=== PATIENT | female | born 1930 | race Caucasian/White ===

== ENCOUNTER 2018-10-30 19:27 | Inpatient (IN) | payer MEDICARE, BC ==
[~2018-10-30] VITALS: Ht 160 cm; Wt 50.0 kg
[2018-10-30] MEDS ORDERED: ASPI81TA21 PO (19:38)
[2018-10-30] MEDS ORDERED: LISI10TA4 PO (19:38)
[2018-10-30] MEDS ORDERED: CLOP75TA2 PO (19:38)
[2018-10-30] MEDS ORDERED: AMLO5TAB6 PO (19:38)
[2018-10-30] MEDS ORDERED: METO1TAB87 PO (19:38)
[2018-10-30] MEDS ORDERED: ACETAMINOPHEN 325 MG TAB PO ONE (20:30)
[2018-10-30] MEDS ORDERED: NS 500 ML IV ONE (20:30)
[2018-10-30 20:32] LABS: BASO # 0.1 10^3/uL (0.0-0.2); BASO % 0.4 % (0.0-1.0); EOS % 0.2 % (0.0-3.0); HEMATOCRIT 35.8 % (36.0-47.0); HEMOGLOBIN 11.8 g/dl (12.0-15.5); LYMPH # 0.7 10^3/uL (1.5-4.5); LYMPH % 5.3 % (24.0-44.0); MEAN CORPUSCULAR HEMOGLOBIN 29.3 pg (27.0-33.0); MEAN CORPUSCULAR VOLUME 88.8 fl (80.0-96.0); MONO # 0.8 10^3/uL (0.0-0.8); MONO % 6.2 % (0.0-5.0); NEUTROPHILS # 11.6 10^3/uL (1.8-7.7); NEUTROPHILS % 87.4 % (36.0-66.0); PLATELET COUNT, AUTOMATED 238 10^3/uL (150-450); RED BLOOD COUNT 4.03 10^6/uL (4.00-5.40); WHITE BLOOD COUNT 13.3 10^3/uL (4.0-10.0)
[2018-10-30 20:51] LABS: ALBUMIN 3.5 GM/DL (3.2-5.2); BILIRUBIN,DIRECT 0.2 MG/DL (0.0-0.2); BILIRUBIN,TOTAL 0.9 MG/DL (0.2-1.0); CALCIUM LEVEL 8.9 MG/DL (8.8-10.2); CREATININE FOR GFR 1.14 MG/DL (0.55-1.30); FREE THYROXINE INDEX 4.3 % (1.3-4.8); GLOMERULAR FILTRATION RATE 48.1 (>32); POTASSIUM SERUM 4.2 MEQ/L (3.5-5.1); THYROID STIMULATING HORMONE 1.06 uIU/ML (0.358-3.740); THYROXINE (T4) 11.5 UG/DL (4.5-12.0); TOTAL PROTEIN 6.9 GM/DL (6.4-8.2)
[2018-10-30 21:07] LABS: APPEARANCE, URINE CLEAR (CLEAR); BACTERIA, URINE AUTO NEGATIVE (NEGATIVE); BILIRUBIN, URINE AUTO NEGATIVE (NEGATIVE); BLOOD, URINE BLOOD 1+ (NEGATIVE); COLOR, URINE YELLOW (YELLOW); GLUCOSE, URINE (UA) AUTO NEGATIVE (NEGATIVE); KETONE, URINE AUTO TRACE mg/dL (NEGATIVE); LEUKOCYTE ESTERASE, URINE AUTO NEGATIVE (NEGATIVE); MUCUS, URINE SMALL (NEGATIVE); NITRITE, URINE AUTO NEGATIVE (NEGATIVE); PROTEIN, URINE AUTO 2+ mg/dL (NEGATIVE); RBC, URINE AUTO 5 /HPF (0-3); SPECIFIC GRAVITY URINE AUTO 1.015 (1.002-1.035); SQUAMOUS EPITHELIAL CELL UR AU 0 /HPF (0-6); TRANSITIONAL EPITHELIAL AUTO <1 /HPF; UROBILINOGEN, URINE AUTO 0.2 mg/dL (0.0-2.0); WBC, URINE AUTO 1 /HPF (0-3)
[2018-10-30 21:23] LABS: INFLUENZA A AMPLIFICATION NEGATIVE (NEGATIVE); INFLUENZA B AMPLIFICATION NEGATIVE (NEGATIVE)
[2018-10-30] MEDS ORDERED: ISOVUE-370 76% 100ML VIAL (Q9967) As Ordered ONE (21:32)
--- NOTE | 2018-10-30 22:06 | REPVR ---
EXAM: CT Abdomen and Pelvis With Contrast EXAM DATE/TIME: 10/30/2018 9:41 PM CLINICAL HISTORY: 87 years old, female; Pain; Abdominal pain; Generalized; Additional info: Fever/pain TECHNIQUE: Axial computed tomography images of the abdomen and pelvis with intravenous contrast. All CT scans at this facility use at least one of these dose optimization techniques: automated exposure control; mA and/or kV adjustment per patient size (includes targeted exams where dose is matched to clinical indication); or iterative reconstruction. Coronal and sagittal reformatted images were created and reviewed. CONTRAST: 100 ml of ISOVUE 370 administered intravenously. COMPARISON: No relevant prior studies available. FINDINGS: Lower thorax: No acute findings. ABDOMEN: Liver: Normal. No mass. Gallbladder and bile ducts: Dilated intrahepatic biliary radicals. Common bile duct dilated to 1.6 cm. No obstructing mass or choledocholithiasis. Hydropic gallbladder contains calculi. Pancreas: Normal. No ductal dilation. Spleen: Normal. No splenomegaly. Adrenals: Normal. No mass. Kidneys and ureters: Normal. No hydronephrosis. Stomach and bowel: Thickwalled gastric fundus likely related to underdistention. Clinical correlation to exclude an infiltrative process suggested. Moderate diverticulosis coli. Suggestion of mild pericolonic inflammatory changes at the junction of the distal left proximal sigmoid colon indicating mild uncomplicated diverticulitis. Appendix: No evidence of appendicitis. PELVIS: Bladder: Pritchard catheter within a collapsed urinary bladder. Otherwise unremarkable as visualized. Reproductive: Calcified uterine fibroids. ABDOMEN and PELVIS: Intraperitoneal space: Normal. No free air. No significant fluid collection. Bones/joints: Status post ORIF both hips. Degenerative spondylosis. Moderate to severe spinal stenosis at L2-3, L3-4, and L4-5. Slight anterolisthesis of L3 on L4. Compression deformities of T12, L1 and L2 likely chronic. Clinical correlation to exclude acute fracture suggested. Soft tissues: Unremarkable. Vasculature: The aorta demonstrates moderate atherosclerotic calcification. Tortuous aorta. Lymph nodes: Normal. No enlarged lymph nodes. Other findings: Osteoporosis. IMPRESSION: 1. Dilated intrahepatic biliary radicals. Common bile duct dilated to 1.6 cm. No obstructing mass or choledocholithiasis. Hydropic gallbladder contains calculi. 2. Moderate diverticulosis coli. Suggestion of mild pericolonic inflammatory changes at the junction of the distal left proximal sigmoid colon indicating mild uncomplicated diverticulitis. Electronically signed by: Chacorta Irving On 10/30/2018 22:06:26 PM
--- NOTE | 2018-10-30 22:07 | REPVR ---
EXAM: CT Head Without Contrast EXAM DATE/TIME: 10/30/2018 9:41 PM CLINICAL HISTORY: 87 years old, female; Signs and symptoms; Altered mental status/memory loss; Additional info: AMS TECHNIQUE: Axial computed tomography images of the head/brain without contrast. All CT scans at this facility use at least one of these dose optimization techniques: automated exposure control; mA and/or kV adjustment per patient size (includes targeted exams where dose is matched to clinical indication); or iterative reconstruction. COMPARISON: No relevant prior studies available. FINDINGS: Brain: There is parenchymal volume loss. White matter changes are demonstrated in the subcortical, centrum semiovale and periventricular white matter consistent with small vessel white matter angiopathic gliosis. Ventricles: Normal. No ventriculomegaly. Bones/joints: Unremarkable. No acute fracture. Sinuses: Visualized sinuses are unremarkable. No acute sinusitis. Mastoid air cells: Visualized mastoid air cells are unremarkable. No mastoid effusion. Soft tissues: Unremarkable. Vasculature: Atherosclerotic changes in the vertebral and intracranial carotid arteries. IMPRESSION: There is parenchymal volume loss. White matter changes are demonstrated in the subcortical, centrum semiovale and periventricular white matter consistent with small vessel white matter angiopathic gliosis. No acute findings. Electronically signed by: Chacorta Irving On 10/30/2018 22:07:20 PM
[2018-10-30] MEDS ORDERED: ASPI81TAEC PO (22:34)
[2018-10-30] MEDS ORDERED: metroNIDAZOLE 750 MG in APPROPRIATE DILUENT 1 EA IV ONE (22:45)
[2018-10-30] MEDS ORDERED: CIPROFLOXACIN 400 MG in APPROPRIATE DILUENT 1 EA IV ONE (22:45)
[2018-10-31] MEDS ORDERED: NS 750 ML IV SCH (02:00)
[2018-10-31] MEDS ORDERED: ONDANSETRON 4MG/2ML VIAL (J2405) IV PRN (02:00)
[2018-10-31] MEDS ORDERED: SODIUM CHLORIDE IV SCH (02:15)
[2018-10-31] MEDS ORDERED: D5W IV SCH (02:15)
[2018-10-31] MEDS: HEPARIN SOD (PORCINE) 5000 UNITS/ML VIAL SC SCH ×3 (05:35→21:42)
[2018-10-31] MEDS: cefTRIAXone SOD 1 GM in D5W MINI-BAG PLUS 50 ML IV SCH (05:41)
[2018-10-31] MEDS: ACETAMINOPHEN TAB 650MG DOSE (2X325MG) PO PRN (06:34)
--- NOTE | 2018-10-31 07:11 | HPE ---
DATE OF ADMISSION: 10/31/2018 CHIEF COMPLAINT: Abdominal pain which was believed to be in the left lower quadrant initially. HISTORY OF PRESENT ILLNESS: The patient is an 87-year-old female. She is presently demented. She also had coronary artery disease (CAD) status post PCI. She had aortic valve replacement in 03/2018. She has hypertension. She presents to the emergency room brought by EMS complaining of abdominal pain. Son was initially present in the emergency room. The patient was having some lower quadrant abdominal pain. Patient is presently demented. She is a very poor historian. Most of the history is obtained from the charts of her primary care physician along with the aide of the emergency department provider and EMS. She currently is completely asymptomatic. A CT of the abdomen shows uncomplicated diverticulitis. She also has severely dilated common bile duct (CBD) with hydrops gallbladder. However, she remains asymptomatic and has no complaints. Attempts were made to discharge the patient from the emergency room and to treat with oral medications for acute uncomplicated diverticulitis, however, her family was not able to be contacted. In the emergency room, the patient denies any symptoms. She denies any nausea, vomiting, chest pain, abdominal pain, constipation, diarrhea, urinary symptoms. She denies having a history of any abdominal pain at all. So at best, I believe the patient's history is unreliable. PAST MEDICAL HISTORY: See history of present illness. PAST SURGICAL HISTORY: She had hip surgery, as well as aortic valve replacement on 03/2018. HOME MEDICATIONS: - aspirin - Plavix - amlodipine - lisinopril ALLERGIES: No known drug allergies. SOCIAL HISTORY: She is a former smoker. Denies alcohol or elicit drug use. REVIEW OF SYSTEMS: Completed 12 point review of systems all of which were negative. Again, the patient is unreliable. FAMILY HISTORY: Noncontributory. VITAL SIGNS ON ADMISSION: She had a T-max of 101.1, heart rate of 80, blood pressure of 104/73, sating at 99% on room air, respiratory rate of 16. PHYSICAL EXAMINATION: General: She is well nourished, in no apparent distress. Head is normocephalic, atraumatic. Eyes: Extraocular movements are intact. Pupils equal, round, and reactive to light. Neck is supple, no jugular venous pulse. Lungs: Clear to auscultation. No crackles, wheezes, rales or rhonchi. Cardiovascular: Regular rate and rhythm. Grade 2/6 murmur heard at the right second intercostal space. Abdomen is soft, nontender, nondistended, positive bowel sounds. No rebound. No guarding. Extremities: No pitting edema or calf tenderness. Skin is intact. No rashes, lesions or breakdown. Neurological exam: Alert and oriented times three. No focal deficits appreciated on exam. LABS AND IMAGING COMPLETED IN THE ER: White count 13, hemoglobin and hematocrit of 11/35, platelet count of 238. Chemistry shows a BUN and creatinine of 30/1.14, lactate within normal limits. UA is unremarkable. Rapid flu is negative. IMAGING: Chest x-ray says no acute disease. CT of the abdomen and pelvis shows dilated intrahepatic biliary radicles. Common bile duct of 1.6 cm. No obstructive mass or cholelithiasis. Hydrops in gallbladder contains calculi. Moderate diverticulosis. Mild pericolonic inflammatory changes at the junction of the distal left proximal sigmoid colon indicating mild uncomplicated diverticulitis. CT of the head shows no acute finding. ASSESSMENT AND PLAN: Sepsis secondary to uncomplicated diverticulitis. Will place the patient on ceftriaxone and Flagyl for now. Because of the poor side effect in her profile for quinolones in elderly patients with atherosclerotic disease, Zofran as needed. Gentle IV fluids while n.p.o. awaiting for MRCP. However since the patient can tolerate diet, she can eat with her uncomplicated diverticulitis. Diet to start after the MRCP completed and will trend vital signs. Patient can likely be discharged on a course of oral Cipro and Flagyl to complete the course. For hydrops gallbladder with dilated common bile duct, there does not appear to be any stone obstruction on the CT scan. Unclear if there is a component of her abdominal pain that is caused by this hydrops gallbladder. Will get MRCP to assess for any obstruction with a severely dilated common bile duct at 1.6 cm. Will consult surgery in the morning. Patient likely will benefit from an elective cholecystectomy if she continues to have abdominal pain and has hydrops gallbladder which can possibly be done as outpatient versus inpatient setting but would also get the MRCP to assess for any choledocholithiasis or other obstruction in the biliary tree. Hypertension, will continue home medication lisinopril as well as Norvasc. History of coronary artery disease (CAD) status post stent, continue dual antiplatelet therapy, aspirin and Plavix. History of aortic valve replacement, stable. Supportive deep venous thrombosis (DVT) prophylaxis, heparin subcutaneous. Gastrointestinal (GI) prophylaxis, not indicated. The patient's diet n.p.o. for now just to have the MRCP. Once the MRCP is complete, she can start on a cardiac diet.
--- NOTE | 2018-10-31 07:35 | REP ---
Clinical: Fever . Comparison: None . Findings: Mediastinum demonstrates atherosclerotic changes to the thoracic aorta along with aortic valve stent graft. Lung whyte demonstrate diffuse chronic changes. No focal consolidation, obvious effusion or pneumothorax. Skeletal structures demonstrate age-related degenerative change. Impression: Chronic-appearing changes. No acute cardiopulmonary process appreciated. Electronically Signed by Phuc Armstrong MD 10/31/2018 07:27 A
[2018-10-31] MEDS: metroNIDAZOLE 500 MG in APPROPRIATE DILUENT 1 EA IV SCH ×2 (08:10→15:46)
[2018-10-31] MEDS: LISINOPRIL 10 MG TAB PO SCH (08:10)
[2018-10-31] MEDS: CLOPIDOGREL 75 MG TAB PO SCH (08:10)
[2018-10-31] MEDS: ASPIRIN 81 MG ENTERIC TAB PO SCH (08:10)
[2018-10-31] MEDS: METOPROLOL TART 25 MG TABLET PO SCH ×2 (08:11→21:41)
[2018-10-31] MEDS: amLODIPine 5 MG TAB PO SCH (08:11)
[2018-10-31 08:33] LABS: BASO % 0.4 % (0.0-1.0); EOS # 0.1 10^3/uL (0.0-0.50); EOS % 0.5 % (0.0-3.0); HEMATOCRIT 30.7 % (36.0-47.0); LYMPH # 0.6 10^3/uL (1.5-4.5); LYMPH % 5.8 % (24.0-44.0); MEAN CORPUSCULAR HEMOGLOBIN 29.3 pg (27.0-33.0); MEAN CORPUSCULAR HGB CONC 32.6 g/dl (32.0-36.5); MONO # 1.1 10^3/uL (0.0-0.8); MONO % 11.2 % (0.0-5.0); NEUTROPHILS # 8.1 10^3/uL (1.8-7.7); NEUTROPHILS % 81.2 % (36.0-66.0); PLATELET COUNT, AUTOMATED 176 10^3/uL (150-450); RED BLOOD COUNT 3.41 10^6/uL (4.00-5.40)
[2018-10-31 08:55] LABS: ALBUMIN 2.4 GM/DL (3.2-5.2); BILIRUBIN,TOTAL 0.7 MG/DL (0.2-1.0); CALCIUM LEVEL 8.3 MG/DL (8.8-10.2); CREATININE FOR GFR 1.06 MG/DL (0.55-1.30); GLOMERULAR FILTRATION RATE 52.3 (>32); POTASSIUM SERUM 3.5 MEQ/L (3.5-5.1); TOTAL PROTEIN 5.7 GM/DL (6.4-8.2)
--- NOTE | 2018-10-31 13:08 | REP ---
MRCP: MRCP exam is accomplished utilizing multiple heavily T2-weighted sequences in the axial and coronal planes. 3D MIP reconstruction images are performed. Gallbladder is moderately distended with no definite wall thickening. There is a 2.5 cm gallstone in the dependent portion of the gallbladder. There is moderate intrahepatic biliary dilatation diffusely. There is dilatation of the common hepatic and common bile ducts with a maximum diameter of 1.6 cm. There is no evidence of choledocholithiasis. I cannot exclude a stricture at the ampulla of Vater. Pancreatic duct is not dilated. A few scattered small cysts are seen in the pancreas which are of doubtful significance. There appears to be a subcentimeter cyst in the tail of the pancreas superiorly and another in the body of the pancreas, with two similar sized cysts in the head of the pancreas, the largest two are in the head of the pancreas and measure 7 mm in diameter and 10 x 5 mm. No other significant abnormalities are seen in the abdomen. No significant free fluid is seen. IMPRESSION: Gallstone in the gallbladder measures 2.5 cm in diameter without evidence of significant gallbladder wall thickening. Gallbladder is moderately dilated. There is moderate intrahepatic and extrahepatic biliary dilatation diffusely, the common bile duct measuring 1.6 cm in maximum diameter. There is no evidence of choledocholithiasis. I cannot exclude a stricture at the ampulla of Vater. There is no pancreatic duct dilatation. There are a few scattered small cysts in the pancreas which are of doubtful significance. Electronically Signed by Avila Gallagher MD 10/31/2018 03:50 P
--- NOTE | 2018-10-31 16:25 | CR ---
DATE OF CONSULTATION: 10/31/2018 SURGICAL CONSULTATION ATTENDING PHYSICIAN: DR. NGUYEN REASON FOR CONSULTATION: Diverticular disease/gallbladder. CHIEF COMPLAINT: Abdominal pain. HISTORY OF PRESENT ILLNESS: The patient is an 87-year-old female with a history of dementia who presented to the emergency room with a complaint of lower quadrant abdominal pain. The patient is a poor historian. However, at presentation to the emergency room (ER), the patient was found to be asymptomatic and was denying any pain. In the emergency room, she did receive a CT abdomen which demonstrated dilated common bile duct at 1.6 cm. There was no obstructing mass or choledocholithiasis. Hydropic gallbladder containing calculi was noted. Additionally, she had some mild diverticulosis with mild pericolonic inflammatory changes consistent with a mild uncomplicated diverticulitis. At the emergency room, the patient remained afebrile. She was started on antibiotic treatment and IV fluids. She has since denied any pain. On examination today, the patient was completely asymptomatic. She did state that there was pain there before but not today. When asked to point where her pain was, she points at her lower left quadrant. She denies any pain in her right upper quadrant. She denies any nausea, vomiting, diarrhea, or constipation. The patient had an magnetic resonance cholangiopancreatography (MRCP) today which demonstrated gallstone in the gallbladder measuring 2.5 cm in diameter without evidence of significant gallbladder wall thickening. Her gallbladder was moderately dilated. There was some moderate intrahepatic and extrahepatic biliary dilatation diffusely. The common bile duct measured 1.6 cm in diameter and there was no evidence of choledocholithiasis. PAST MEDICAL HISTORY: 1. Coronary artery disease, status post percutaneous coronary intervention (PCI). 2. Hypertension. 3. Dementia. PAST SURGICAL HISTORY: Aortic valve replacement in March 2018. HOME MEDICATIONS: Aspirin, Plavix, amlodipine, lisinopril. ALLERGIES: No known drug allergies. SOCIAL HISTORY: The patient is a former smoker. Denies any alcohol or illicit drug use. REVIEW OF SYSTEMS: 12-point review of systems was negative. VITAL SIGNS: Temperature 97.2, pulse 71, respiratory rate 16, blood pressure 136/60, pulse oximetry 95% on room air. PHYSICAL EXAMINATION: GENERAL: The patient is awake and alert. She appears in no acute distress. She is well-nourished. She is lying comfortably in bed. HEENT: Head is normocephalic, atraumatic. Eyes are anicteric. Pupils are equal, round, and reactive to light. Trachea is midline. No jugular venous distention (JVD). No carotid bruits. RESPIRATORY: Lungs are clear to auscultation bilaterally. No wheezes, rhonchi or rales. CARDIOVASCULAR: The patient has a regular rate and rhythm, a grade 2/6 systolic murmur appreciated. ABDOMEN: The patient's abdomen is soft, nontender to palpation, nondistended. No rebound tenderness or guarding. Positive bowel sounds in all four quadrants. EXTREMITIES: No edema, 2+ posterior tibial pulses bilaterally, 2+ radial pulses bilaterally. PSYCHIATRY: Mood and affect appear appropriate. LABORATORY DATA: Hematology: White blood cell 10.0, hemoglobin 10.0, hematocrit 30.7, platelet count 176. Chemistry: Sodium 138, potassium 3.5, chloride 104, CO2 25, BUN 24, creatinine 1.06, fasting glucose 135, calcium 8.3, AST 20, ALT 14, alkaline phosphatase 69, total bilirubin 0.9, direct bilirubin 0.2. IMAGING: CT abdomen and pelvis demonstrated dilated common bile duct at 1.6 cm with no obstructing mass or cholelithiasis, hydropic gallbladder containing calculi, moderate diverticulosis with calculi suggesting mild pericolonic inflammatory changes at the junction of the distal left proximal sigmoid colon indicating mild uncomplicated diverticulitis. ASSESSMENT AND PLAN: 1. Diverticular disease: The patient is currently not complaining of any pain. CT imaging did demonstrate uncomplicated diverticulitis. The patient is currently on IV fluids and IV antibiotics. The patient can followup with Dr. Nguyen's office in 1-2 weeks. At discharge, she should be placed on oral antibiotics. 2. Dilated bile duct/hydropic gallbladder: The patient has a dilated bile duct without any evidence of obstruction. Her white blood cell count has been within normal limits. She has remained afebrile. There is no pain on palpation of the abdomen. Her liver function tests are not elevated at this time. The patient can likely followup as an outpatient with Dr. Nguyen for further management of her possible gallbladder disease. No indication for surgical intervention at this time. My faculty preceptor for this patient encounter was physically present during the encounter and was fully available. All aspects of the patient interview, examination, medical decision making process, and medical care plan development were reviewed and approved by the faculty preceptor. The faculty preceptor is aware and concurs with the plan as stated in the body of this note and will attest to such by his/her co-signature. NOE
[2018-11-01] MEDS: ACETAMINOPHEN TAB 650MG DOSE (2X325MG) PO PRN ×2 (02:31→14:54)
[2018-11-01] MEDS: HEPARIN SOD (PORCINE) 5000 UNITS/ML VIAL SC SCH ×3 (05:52→21:01)
[2018-11-01] MEDS: cefTRIAXone SOD 1 GM in D5W MINI-BAG PLUS 50 ML IV SCH (05:52)
[2018-11-01 06:00] VITALS: BP 132/66
[2018-11-01 06:03] LABS: HEMATOCRIT 30.1 % (36.0-47.0); HEMOGLOBIN 10.1 g/dl (12.0-15.5); MEAN CORPUSCULAR HEMOGLOBIN 29.2 pg (27.0-33.0); MEAN CORPUSCULAR HGB CONC 33.6 g/dl (32.0-36.5); PLATELET COUNT, AUTOMATED 223 10^3/uL (150-450); RED BLOOD COUNT 3.46 10^6/uL (4.00-5.40); WHITE BLOOD COUNT 10.2 10^3/uL (4.0-10.0)
[2018-11-01 06:21] LABS: CALCIUM LEVEL 8.7 MG/DL (8.8-10.2); CREATININE FOR GFR 1.12 MG/DL (0.55-1.30); GLOMERULAR FILTRATION RATE 49.1 (>32); POTASSIUM SERUM 3.7 MEQ/L (3.5-5.1)
[2018-11-01] MEDS: metroNIDAZOLE 500 MG in APPROPRIATE DILUENT 1 EA IV SCH ×5 (08:10→23:35)
[2018-11-01] MEDS: CLOPIDOGREL 75 MG TAB PO SCH (08:21)
[2018-11-01] MEDS: ASPIRIN 81 MG ENTERIC TAB PO SCH (08:21)
[2018-11-01] MEDS: amLODIPine 5 MG TAB PO SCH (08:22)
[2018-11-01] MEDS: METOPROLOL TART 25 MG TABLET PO SCH ×2 (08:23→21:01)
[2018-11-01] MEDS: LISINOPRIL 10 MG TAB PO SCH (08:23)
[2018-11-01] MEDS ORDERED: PILL CRUSHER/CUTTER 1 EACH XX PRN (08:45)
--- NOTE | 2018-11-01 10:47 | IPNPDOC ---
Date Seen The patient was seen on 11/01/18. Progress Note SUBJECTIVE: Patient was seen and examined this morning. She was complaining of lower abdominal pain this morning. She denied pain in her right upper quadrant. On reevaluation, she denied any pain at all. The patient is eating without discomfort. She is having bowel movements. She has remained afebrile. Her WBC is stable. She does have a degree of dementia and is an unreliable historian. Her family are not present at bedside. OBJECTIVE PHYSICAL EXAMINATION: VITAL SIGNS: Please see below. GENERAL: Patient is awake and alert. She does not appear in acute distress. She is sitting up in bed and eating breakfast HEENT: Atraumatic normocephalic. Eyes are non-icteric. Trachea is midline. CARDIOVASCULAR: Regular rate and rhythm. 2/6 systolic murmur noted. No JVD, No carotid bruits RESPIRATORY: Clear to auscultation bilaterally with good respiratory effort. No wheezes, rhonchi or rales ABDOMINAL: Soft nondistended. Nontender to palpation throughout. Positive bowel sounds present in all four quadrants EXTREMITIES: No edema present. Full and equal pulses throughout PSYCHOLOGICAL: Mood and affect appear appropriate LABORATORY DATA, IMAGING STUDIES, MICROBIOLOGY: Please see below. ASSESSMENT AND PLAN: 1. Diverticular disease: The patient complained of pain in her left lower quad rant this morning. On reevaluation she denied any pain. She has been having bowel movements and tolerating her diet. Her CT did demonstrate uncomplicated diverticulitis. Her pain earlier this morning may be from her diverticulitis or from gas pain. At this point no indication for surgical intervention. Patient should be continued on IV fluids and antibiotics for treatment of her diverticular disease. She may benefit with outpatient follow-up at Dr. Nielsen officer in 2-3 weeks. At time of discharge patient should be sent with oral antibiotics 2. Dilated bile duct/hydropic gallbladder: Patient denies any right upper quadrant pain. She does not appear to be in any pain with deep palpation of her RUQ. She has had imaging which demonstrated a dilated bile duct without evidence of obstruction. She remains afebrile without an elevated WBC. Her LFTs are within normal limits. At this point, there is no need for surgical intervention. She may follow up with Dr. Nguyen's office in 2-3 weeks for further management. DISPOSITION: Surgery signing off. Patient can follow-up as an outpatient in 2-3 weeks for further management VS, I&O, 24H, Fishbone Vital Signs/I&O Vital Signs Date Time Temp Pulse Resp B/P (MAP) Pulse Ox O2 Delivery O2 Flow Rate FiO2 11/01/18 08:22 89 171/86 11/01/18 06:00 98.2 20 94 10/31/18 14:00 Room Air I&O- Last 24 Hours up to 6 AM 11/01/18 05:59 Intake Total 600 ml Output Total 800 ml Balance -200 ml Laboratory Data 24H LABS Laboratory Tests 2 11/01/18 05:45: Nucleated Red Blood Cells % (auto) 0.0, Anion Gap 9, Glomerular Filtration Rate 49.1, Blood Urea Nitrogen 26H, Creatinine 1.12, Sodium Level 141, Potassium Level 3.7, Chloride Level 106, Carbon Dioxide Level 26, Calcium Level 8.7L CBC/BMP Laboratory Tests 11/01/18 05:45 Red Blood Count 3.46 L, Mean Corpuscular Volume 87.0, Mean Corpuscular Hemoglobin 29.2, Mean Corpuscular Hemoglobin Concent 33.6, Red Cell Distribution Width 13.4, Calcium Level 8.7 L Microbiology Microbiology 10/30/18 Blood Culture - Preliminary, Resulted No growth after 24 hours . All specim... 10/30/18 Urine Culture - Final, Complete GME ATTESTATION GME ATTESTATION My faculty preceptor for this patient encounter was physically present during the encounter and was fully available. All aspects of the patient interview, examination, medical decision making process, and medical care plan development were reviewed and approved by the faculty preceptor. The faculty preceptor is aware and concurs with the plan as stated in the body of this note and will attest to such by his/her cosignature. KEVIN COSTA DO Nov 01, 2018 10:47
[2018-11-01 14:00] VITALS: BP 116/57
--- NOTE | 2018-11-01 14:17 | IPNPDOC ---
Date Seen The patient was seen on 11/01/18. Progress Note SUBJECTIVE: Patient is a 87-year-old female with progressive weakness and inability to care for herself. Patient has dementia. Patient is evaluated at bedside this morning. She is minimally interactive and is laying with her head up against the bed rail. She mumbles when questioned. During initial evaluation yesterday patient was alert and conversant. She stated at that time that she had upper back pain which radiated to her lower back that she was unable to rate or characterize. No abdominal pain, fever, night sweats, chills, chest pain, nausea, vomiting, or difficulties urinating. OBJECTIVE PHYSICAL EXAMINATION: VITAL SIGNS: Please see below. GENERAL: Elderly female, appropriately dressed in hospital attire, slumped over in the bed with her head against the bed rail, minimally conversant, winces with palpatory examination. HEENT: Atraumatic, normocephalic, keeps her eyes closed during examination, nares appear patent and midline. CARDIOVASCULAR: Regular rate and rhythm, normal S1 and S2, grade III/ systolic murmur appreciated over the 3rd-4th intercostal space on the left. RESPIRATORY: Clear to auscultation bilaterally, poor inspiratory and expiratory effort, no focal consolidations, no wheeze, rhonchi, crackles. ABDOMINAL: Soft, non-tender, non-distended, bowel sounds appreciated. EXTREMITIES: Warm, dry, intact, no cyanosis, no clubbing, no peripheral edema. NEUROLOGICAL: No focal neurological deficits. PSYCHOLOGICAL: Dementia at baseline. LABORATORY DATA, IMAGING STUDIES, MICROBIOLOGY: Please see below. DVT prophylaxis ordered?: Heparin 5,000 units subcutaneously every 8 hours. ASSESSMENT AND PLAN: This is a 87-year-old female with progressive weakness and inability to perform ADLs. PROBLEMS: 1. Dilated common bile duct: General surgery consulted. No surgical intervention required. Out-patient follow up in 2-3 weeks. 2. Mild uncomplicated diverticulitis: Continue with IV Metronidazole and Ceftriaxone. General surgery consulted. Recommend out-patient follow up in 2-3 weeks. No surgical intervention required. Transition to oral antibiotics at time of discharge. 3. Dementia: Progressive. Verbal discussion with son, Bernabe, , who noted that patient has been progressively declining since aortic valve repair in 03/2018 with subsequent fall resulting in hip fracture requiring surgical interve ntion who has been convalescing at his home since 03/2018. Son states that patient would need to be fairly independent with ADLs to remain at home as he does not feel comfortable caring for her hygiene needs. He has a twin sister with he shares decision making capabilities. No singed healthcare proxy or power of employment attorney. Considering long-term care. PFS have been consulted. Sitter has been placed for agitation. 4. Progressive weakness: Physical and occupational therapy consulted. 5. Hypertension: Continue Amlodipine, Lisinopril, and Metoprolol. 6. Constipation: Started Senokot S and MiraLAX. 7. History of aortic valve repair 8. Coronary artery disease status-post percutaneous coronary intervention: Continue Plavix and Aspirin. 9. Back pain: K-pad added for comfort and symptomatic relief. Tylenol as needed. DISPOSITION: Physical and occupational therapy. Potential placement. VS, I&O, 24H, Fishbone Vital Signs/I&O Vital Signs Date Time Temp Pulse Resp B/P (MAP) Pulse Ox O2 Delivery O2 Flow Rate FiO2 11/01/18 08:22 89 171/86 11/01/18 06:00 98.2 20 94 10/31/18 14:00 Room Air I&O- Last 24 Hours up to 6 AM 11/01/18 06:00 Intake Total 600 ml Output Total 800 ml Balance -200 ml Laboratory Data 24H LABS Laboratory Tests 2 11/01/18 05:45: Nucleated Red Blood Cells % (auto) 0.0, Anion Gap 9, Glomerular Filtration Rate 49.1, Blood Urea Nitrogen 26H, Creatinine 1.12, Sodium Level 141, Potassium [place] 3.7, Chloride Level 106, Carbon Dioxide Level 26, Calcium Level 8.7L CBC/BMP Laboratory Tests 11/01/18 05:45 Red Blood Count 3.46 L, Mean Corpuscular Volume 87.0, Mean Corpuscular Hemoglobin 29.2, Mean Corpuscular Hemoglobin Concent 33.6, Red Cell Distribution Width 13.4, Calcium Level 8.7 L Microbiology Microbiology 10/30/18 Blood Culture - Preliminary, Resulted No growth after 24 hours . All specim... 10/30/18 Urine Culture - Final, Complete FELISHA APODACA DO Nov 01, 2018 14:17
[2018-11-01] MEDS: SENOKOT S TAB PO SCH (14:54)
[2018-11-01] MEDS: MIRALAX *UNIT DOSE* 17GM PACKET PO SCH (14:55)
[2018-11-01 22:00] VITALS: BP 143/67
[2018-11-02] MEDS: ACETAMINOPHEN TAB 650MG DOSE (2X325MG) PO PRN ×2 (05:07→15:00)
[2018-11-02] MEDS: cefTRIAXone SOD 1 GM in D5W MINI-BAG PLUS 50 ML IV SCH (05:08)
[2018-11-02] MEDS: HEPARIN SOD (PORCINE) 5000 UNITS/ML VIAL SC SCH ×3 (05:08→20:36)
[2018-11-02 06:00] VITALS: BP 134/69
[2018-11-02 06:27] LABS: HEMATOCRIT 32.2 % (36.0-47.0); HEMOGLOBIN 10.8 g/dl (12.0-15.5); MEAN CORPUSCULAR HEMOGLOBIN 29.3 pg (27.0-33.0); MEAN CORPUSCULAR HGB CONC 33.5 g/dl (32.0-36.5); MEAN CORPUSCULAR VOLUME 87.5 fl (80.0-96.0); PLATELET COUNT, AUTOMATED 248 10^3/uL (150-450); RED BLOOD COUNT 3.68 10^6/uL (4.00-5.40)
[2018-11-02 06:48] LABS: CALCIUM LEVEL 8.9 MG/DL (8.8-10.2); CREATININE FOR GFR 1.12 MG/DL (0.55-1.30); GLOMERULAR FILTRATION RATE 49.1 (>32); POTASSIUM SERUM 3.7 MEQ/L (3.5-5.1)
[2018-11-02] MEDS: CLOPIDOGREL 75 MG TAB PO SCH (09:25)
[2018-11-02] MEDS: metroNIDAZOLE 500 MG in APPROPRIATE DILUENT 1 EA IV SCH ×3 (09:25→23:53)
[2018-11-02] MEDS: LISINOPRIL 10 MG TAB PO SCH (09:25)
[2018-11-02] MEDS: ASPIRIN 81 MG ENTERIC TAB PO SCH (09:25)
[2018-11-02] MEDS: SENOKOT S TAB PO SCH (09:25)
[2018-11-02] MEDS: METOPROLOL TART 25 MG TABLET PO SCH ×2 (09:26→20:36)
[2018-11-02] MEDS: amLODIPine 5 MG TAB PO SCH (09:26)
[2018-11-02] MEDS: MIRALAX *UNIT DOSE* 17GM PACKET PO SCH (09:26)
--- NOTE | 2018-11-02 09:33 | IPNPDOC ---
Date Seen The patient was seen on 11/02/18. Progress Note SUBJECTIVE: Patient is a 87-year-old female with progressive weakness and inability to care for herself. Patient has dementia. Patient is evaluated at bedside this morning. She has a sitter present. She is laying on her left side. She is responsive to verbal stimuli. She states that she slept well. She does admit to back pain which she is unable to characterize or quantify. OBJECTIVE PHYSICAL EXAMINATION: VITAL SIGNS: Please see below. GENERAL: Elderly female, appropriately dressed in hospital attire, laying on her left side in hospital bed, responsive to verbal stimuli, no acute distress. HEENT: Atraumatic, normocephalic, opens her eyes towards the end of examination, oral mucosa appears pink and moist, nasal septum is midline, nares are patent. CARDIOVASCULAR: Regular rate and rhythm, normal S1 and S2, grade III/ systolic murmur appreciated over the 3rd-4th intercostal space on the left. RESPIRATORY: Clear to auscultation bilaterally, adequate insight during extremely airway excursion, no focal consolidations, no wheeze, rhonchi, crackles. ABDOMINAL: Soft, non-tender, non-distended, bowel sounds appreciated. EXTREMITIES: Warm, dry, intact, no cyanosis, no clubbing, no peripheral edema. NEUROLOGICAL: No focal neurological deficits. PSYCHOLOGICAL: Dementia at baseline. LABORATORY DATA, IMAGING STUDIES, MICROBIOLOGY: Please see below. Chest x-ray, 1 view on 10/30/2018 - chronic appearing changes, no acute cardio pulmonary process. CT head without contrast on 10/30/2018 - parenchymal volume loss, small vessel white matter angiopathic gliosis. CT abdomen and pelvis with IV contrast only on 10/30/2018 - dilated intrahepatic biliary radicles, common bile duct dilatation and 0.6 cm, no obstructing mass or choledocholithiasis, hydropic gallbladder contains calculi, moderate diverticulosis coli, mild uncomplicated diverticulitis. MRCP on 10/31/2018 - gallstone in gallbladder measuring 2.5 cm, moderately dilated gallbladder, moderate intrahepatic and extra hepatic biliary dilatation diffusely, common bile duct 1.6 cm, no choledocholithiasis. DVT prophylaxis ordered?: Heparin 5,000 units subcutaneously every 8 hours. ASSESSMENT AND PLAN: This is a 87-year-old female with progressive weakness and inability to perform ADLs. PROBLEMS: 1. Dilated common bile duct: General surgery consulted. No surgical intervention required. Out-patient follow up in 2-3 weeks. 2. Mild uncomplicated diverticulitis: Continue with IV Metronidazole and Ceftriaxone. General surgery consulted. Recommend out-patient follow up in 2-3 weeks. No surgical intervention required. Transition to oral antibiotics at time of discharge. 3. Dementia: Progressive. Verbal discussion with son, Bernabe, , who noted that patient has been progressively declining since aortic valve repair in 03/2018 with subsequent fall resulting in hip fracture requiring surgical intervention who has been convalescing at his home since 03/2018. Son states that patient would need to be fairly independent with ADLs to remain at home as he does not feel comfortable caring for her hygiene needs. He has a twin sister with he shares decision making capabilities. No singed healthcare proxy or power of criminal attorney. Considering long-term care. PFS have been consulted. Sitter has been placed for agitation. 4. Progressive weakness: Physical and occupational therapy consulted. 5. Hypertension: Continue Amlodipine, Lisinopril, and Metoprolol. 6. Constipation: Started Senokot S and MiraLAX. 7. History of aortic valve repair 8. Coronary artery disease status-post percutaneous coronary intervention: Continue Plavix and Aspirin. 9. Back pain: K-pad added for comfort and symptomatic relief. Tylenol as needed. DISPOSITION: Physical and occupational therapy. Potential placement. VS, I&O, 24H, Fishbone Vital Signs/I&O Vital Signs Date Time Temp Pulse Resp B/P (MAP) Pulse Ox O2 Delivery O2 Flow Rate FiO2 11/02/18 09:26 77 134/69 11/02/18 06:00 98.0 18 96 10/31/18 14:00 Room Air I&O- Last 24 Hours up to 6 AM 11/02/18 06:00 Intake Total 990 ml Output Total 750 ml Balance 240 ml Laboratory Data 24H LABS Laboratory Tests 2 11/02/18 05:40: Nucleated Red Blood Cells % (auto) 0.0, Anion Gap 7L, Glomerular Filtration Rate 49.1, Blood Urea Nitrogen 27H, Creatinine 1.12, Sodium Level 139, Potassium Level 3.7, Chloride Level 106, Carbon Dioxide Level 26, Calcium Level 8.9 CBC/BMP Laboratory Tests 11/02/18 05:40 Red Blood Count 3.68 L, Mean Corpuscular Volume 87.5, Mean Corpuscular Hemoglobin 29.3, Mean Corpuscular Hemoglobin Concent 33.5, Red Cell Distribution Width 13.4, Calcium Level 8.9 Microbiology Microbiology 10/30/18 Blood Culture - Preliminary, Resulted No Growth after 48 hours. All Specime... 10/30/18 Urine Culture - Final, Complete FELISHA APODACA DO Nov 02, 2018 09:33
[2018-11-02 14:00] VITALS: BP 136/62
[2018-11-02 22:00] VITALS: BP 145/64
[2018-11-03 02:00] VITALS: BP 145/64
[2018-11-03 06:00] VITALS: BP_SYST 145; BP_DIAS 64; BP_DIAS 65
[2018-11-03] MEDS: HEPARIN SOD (PORCINE) 5000 UNITS/ML VIAL SC SCH ×3 (06:00→21:01)
[2018-11-03] MEDS: cefTRIAXone SOD 1 GM in D5W MINI-BAG PLUS 50 ML IV SCH (06:00)
[2018-11-03 06:39] LABS: HEMATOCRIT 29.7 % (36.0-47.0); HEMOGLOBIN 9.9 g/dl (12.0-15.5); MEAN CORPUSCULAR HEMOGLOBIN 29.5 pg (27.0-33.0); MEAN CORPUSCULAR HGB CONC 33.3 g/dl (32.0-36.5); MEAN CORPUSCULAR VOLUME 88.4 fl (80.0-96.0); PLATELET COUNT, AUTOMATED 242 10^3/uL (150-450); RED BLOOD COUNT 3.36 10^6/uL (4.00-5.40); WHITE BLOOD COUNT 4.9 10^3/uL (4.0-10.0)
[2018-11-03 07:06] LABS: CALCIUM LEVEL 8.5 MG/DL (8.8-10.2); CREATININE FOR GFR 1.13 MG/DL (0.55-1.30); GLOMERULAR FILTRATION RATE 48.6 (>32); POTASSIUM SERUM 3.8 MEQ/L (3.5-5.1)
[2018-11-03] MEDS: metroNIDAZOLE 500 MG in APPROPRIATE DILUENT 1 EA IV SCH ×2 (08:48→15:55)
[2018-11-03] MEDS: CLOPIDOGREL 75 MG TAB PO SCH (08:48)
[2018-11-03] MEDS: MIRALAX *UNIT DOSE* 17GM PACKET PO SCH (08:48)
[2018-11-03] MEDS: amLODIPine 5 MG TAB PO SCH (08:49)
[2018-11-03] MEDS: LISINOPRIL 10 MG TAB PO SCH (08:49)
[2018-11-03] MEDS: ASPIRIN 81 MG ENTERIC TAB PO SCH (08:49)
[2018-11-03] MEDS: SENOKOT S TAB PO SCH (08:49)
[2018-11-03] MEDS: METOPROLOL TART 25 MG TABLET PO SCH ×2 (08:49→21:01)
--- NOTE | 2018-11-03 12:15 | IPNPDOC ---
Text Note Date of Service The patient was seen on 11/03/18. NOTE Subjective: Patient is an 87-year-old female with a PMHx of Dementia, HTN, CAD s/p PCI, AV replacement (03/2018) who presented to the ER with complaints of abdominal pain. In the emergency room, patient was found to have a suspected colitis and was admitted to the hospitalist service for further evaluation and treatment. Surgery was called in consultation. Patient was seen and examined at the bedside. Currently patient denies any nausea, vomiting, any abdominal pain, constipation or diarrhea. Has been tolerating her diet. Denies any chest pain, shortness of breath or palpitations. Objective: Vitals (See below) General: Lying in bed, no acute distress, comfortable, Awake / Alert HEENT: NC, AT CVS: RRR, +S1S2 Lungs: Fair air entry b/l, -w/r/r Abdomen: Soft, ND, NT Extremities: - Edema, - Calf tenderness Assessment and plan: s/p Abdominal pain - likely 2/2 Acute diverticulitis (mild) - Patient notes abdominal pain has resolved. Denies any nausea or vomiting. Has been tolerating a diet - Physical without any tenderness - No leukocytosis and lactic acidosis - CT abdomen / pelvis 10/30: 1. Dilated intrahepatic biliary radicals. Common bile duct dilated to 1.6 cm. No obstructing mass or choledocholithiasis. Hydropic gallbladder contains calculi. 2. Moderate diverticulosis coli. Suggestion of mild pericolonic inflammatory changes at the junction of the distal left proximal sigmoid colon indicating mild uncomplicated diverticulitis. - c/w Ceftriaxone / Flagyl (Day #5) Dilated CBD - Liver function tests within normal limits - MRCP 10/31: Gallstone in the gallbladder measures 2.5 cm in diameter without evidence of significant gallbladder wall thickening. Gallbladder is moderately dilated. There is moderate intrahepatic and extrahepatic biliary dilatation diffusely, the common bile duct measuring 1.6 cm in maximum diameter. There is no evidence of choledocholithiasis. I cannot exclude a stricture at the ampulla of Vater. There is no pancreatic duct dilatation. There are a few scattered small cysts in the pancreas which are of doubtful significance. - Surgery on consultation; no surgery indicated; will have outpatient follow up Dementia; likely progressive - Patient is been having progressive difficulty with activities of daily living and patient's son is unable to care for her - PFS on consultation for likely long-term placement - Will c/w PT / OT HTN - BP well cotnrolled - c/w Amlodipine, Lisinopril and Metoprolol Constipation - c/w Bowel regimen CAD s/p PCI / AV replacement (03/2018) - c/w ASA and Plavix DVT prophylaxis - c/w Heparin Disposition: - Bernabe Miles (1 of 2 HCP): - c/w antibiotics / physical an occupational therapy - Likely will need nursing home placement VS,Fishbone, I+O VS, Fishbone, I+O Laboratory Tests 11/03/18 05:42 Red Blood Count 3.36 L, Mean Corpuscular Volume 88.4, Mean Corpuscular Hemoglobin 29.5, Mean Corpuscular Hemoglobin Concent 33.3, Red Cell Distribution Width 13.6, Calcium Level 8.5 L Vital Signs Date Time Temp Pulse Resp B/P (MAP) Pulse Ox O2 Delivery O2 Flow Rate FiO2 11/03/18 08:49 67 145/65 11/03/18 06:00 96.3 20 96 10/31/18 14:00 Room Air I&O- Last 24 Hours up to 6 AM 11/03/18 06:00 Intake Total 1340 ml Output Total 625 ml Balance 715 ml ANTONIO MANCILLA MD Nov 03, 2018 12:15
[2018-11-03 14:00] VITALS: BP 127/60
[2018-11-03] MEDS: ACETAMINOPHEN TAB 650MG DOSE (2X325MG) PO PRN (21:02)
[2018-11-03 22:00] VITALS: BP 163/74
[2018-11-04] MEDS: metroNIDAZOLE 500 MG in APPROPRIATE DILUENT 1 EA IV SCH ×4 (00:26→23:59)
[2018-11-04] MEDS: HEPARIN SOD (PORCINE) 5000 UNITS/ML VIAL SC SCH ×3 (05:22→22:44)
[2018-11-04] MEDS: cefTRIAXone SOD 1 GM in D5W MINI-BAG PLUS 50 ML IV SCH (05:22)
[2018-11-04 06:00] VITALS: BP 139/66
[2018-11-04 07:27] LABS: HEMATOCRIT 31.6 % (36.0-47.0); HEMOGLOBIN 10.3 g/dl (12.0-15.5); MEAN CORPUSCULAR HEMOGLOBIN 28.9 pg (27.0-33.0); MEAN CORPUSCULAR HGB CONC 32.6 g/dl (32.0-36.5); MEAN CORPUSCULAR VOLUME 88.8 fl (80.0-96.0); PLATELET COUNT, AUTOMATED 275 10^3/uL (150-450); RED BLOOD COUNT 3.56 10^6/uL (4.00-5.40); WHITE BLOOD COUNT 4.8 10^3/uL (4.0-10.0)
[2018-11-04 07:46] LABS: CALCIUM LEVEL 8.7 MG/DL (8.8-10.2); CREATININE FOR GFR 1.15 MG/DL (0.55-1.30); GLOMERULAR FILTRATION RATE 47.6 (>32); POTASSIUM SERUM 3.7 MEQ/L (3.5-5.1)
[2018-11-04] MEDS: SENOKOT S TAB PO SCH (09:00)
[2018-11-04] MEDS: MIRALAX *UNIT DOSE* 17GM PACKET PO SCH (09:00)
--- NOTE | 2018-11-04 09:49 | REP ---
Lumbar spine series: Five views. History: Low back pain. Findings: Five views of the lumbar spine show dextroconvex curvature. There is diffuse osteopenia. There is loss of vertebral body height at L2 and L1. Some osteoporotic wedging is seen at T12. These findings are unchanged when compared with sagittal reformatted images from October 30, 2018 CT study. There is degenerative disc narrowing at L4-5, L5-S1 and to some degree at L3-4. There is osteoarthritic facet narrowing bilaterally at L3-4, L4-5 and L5-S1. Sacrum and SI joints appear intact. There is a pin in each hip. Vascular calcification is noted. There is no evidence of spondylolysis or spondylolisthesis. Impression: Osteoporosis. Dextroconvex curvature. Osteoporotic wedge compression fracture deformities at the at T12, L1 and L2 unchanged from recent CT study. There are degenerative spondylosis changes as well most pronounced at L4-5 and L5-S1. Electronically Signed by Larry Bell MD 11/04/2018 10:11 A
[2018-11-04] MEDS: METOPROLOL TART 25 MG TABLET PO SCH ×2 (10:16→22:44)
[2018-11-04] MEDS: ASPIRIN 81 MG CHEW TABLET PO SCH (10:17)
[2018-11-04] MEDS: CLOPIDOGREL 75 MG TAB PO SCH (10:17)
[2018-11-04] MEDS: amLODIPine 5 MG TAB PO SCH (10:18)
[2018-11-04] MEDS: LISINOPRIL 10 MG TAB PO SCH (10:20)
[2018-11-04 14:00] VITALS: BP 166/71
--- NOTE | 2018-11-04 16:41 | IPNPDOC ---
Text Note Date of Service The patient was seen on 11/04/18. NOTE Subjective: Patient is an 87-year-old female with a PMHx of Dementia, HTN, CAD s/p PCI, AV replacement (03/2018) who presented to the ER with complaints of abdominal pain. In the emergency room, patient was found to have a suspected colitis and was admitted to the hospitalist service for further evaluation and treatment. Surgery was called in consultation. Patient was seen and examined at the bedside. Patient was conversive this morning. She denies any pain. Was tolerating her breakfast. Denies any CP, SOB or palpitations. Denies any N/V, abdominal pain, C/D. Notes some back pain. Objective: Vitals (See below) General: Lying in bed, no acute distress, comfortable, Awake / Alert HEENT: NC, AT CVS: RRR, +S1S2 Lungs: Fair air entry b/l, no evidence of wheezing / rhonchi / rales Abdomen: Soft, Non-distended without tenderness Extremities: No evidence of edema, - Calf tenderness Neuro: Moving all four extremities; strength intact bilaterally at LE Assessment and plan: s/p Abdominal pain - likely 2/2 Acute diverticulitis (mild) - Clinically improved; no abdominal discomfort, tolerating diet - Physical without any tenderness - No leukocytosis and lactic acidosis - CT abdomen / pelvis 10/30: 1. Dilated intrahepatic biliary radicals. Common bile duct dilated to 1.6 cm. No obstructing mass or choledocholithiasis. Hydropic gallbladder contains calculi. 2. Moderate diverticulosis coli. Suggestion of mild pericolonic inflammatory changes at the junction of the distal left proximal sigmoid colon indicating mild uncomplicated diverticulitis. - c/w Ceftriaxone / Flagyl (Day #6) Acute on chronic back pain - Lumbar XR 11/04: Osteoporosis. Dextroconvex curvature. Osteoporotic wedge co mpression fracture deformities at the at T12, L1 and L2 unchanged from recent CT study. There are degenerative spondylosis changes as well most pronounced at L4-5 and L5-S1. - c/w Tylenol PRN - c/w PT/OT Dilated CBD - Liver function tests within normal limits - MRCP 10/31: Gallstone in the gallbladder measures 2.5 cm in diameter without evidence of significant gallbladder wall thickening. Gallbladder is moderately dilated. There is moderate intrahepatic and extrahepatic biliary dilatation diffusely, the common bile duct measuring 1.6 cm in maximum diameter. There is no evidence of choledocholithiasis. I cannot exclude a stricture at the ampulla of Vater. There is no pancreatic duct dilatation. There are a few scattered small cysts in the pancreas which are of doubtful significance. - Surgery on consultation; no surgery indicated; will have outpatient follow up Dementia; likely progressive - Patient is been having progressive difficulty with activities of daily living and patient's son is unable to care for her - PFS on consultation for likely long-term placement - c/w PT / OT HTN - BP well controlled - c/w Amlodipine, Lisinopril and Metoprolol Constipation - c/w Bowel regimen CAD s/p PCI / AV replacement (03/2018) - c/w ASA and Plavix DVT prophylaxis - c/w Heparin Disposition: - Bernabe Miles (1 of 2 HCP): - c/w antibiotics / physical an occupational therapy; likely transition home VS,Jody, I+O VS, Jody, I+O Laboratory Tests 11/04/18 06:42 Red Blood Count 3.56 L, Mean Corpuscular Volume 88.8, Mean Corpuscular Hemoglobin 28.9, Mean Corpuscular Hemoglobin Concent 32.6, Red Cell Distribution Width 13.6, Calcium Level 8.7 L Vital Signs Date Time Temp Pulse Resp B/P (MAP) Pulse Ox O2 Delivery O2 Flow Rate FiO2 11/04/18 14:00 97.9 73 18 166/71 (102) 95 10/31/18 14:00 Room Air I&O- Last 24 Hours up to 6 AM 11/04/18 06:00 Intake Total 1700 ml Output Total 900 ml Balance 800 ml ANTONIO MANCILLA MD Nov 04, 2018 16:41
[2018-11-04 22:00] VITALS: BP 140/90
[2018-11-05] MEDS: ACETAMINOPHEN TAB 650MG DOSE (2X325MG) PO PRN (04:04)
[2018-11-05] MEDS: HEPARIN SOD (PORCINE) 5000 UNITS/ML VIAL SC SCH ×3 (05:55→21:52)
[2018-11-05] MEDS: cefTRIAXone SOD 1 GM in D5W MINI-BAG PLUS 50 ML IV SCH (05:55)
[2018-11-05 06:00] VITALS: BP 146/64
[2018-11-05 06:55] LABS: HEMATOCRIT 30.7 % (36.0-47.0); HEMOGLOBIN 10.1 g/dl (12.0-15.5); MEAN CORPUSCULAR HEMOGLOBIN 29.4 pg (27.0-33.0); MEAN CORPUSCULAR HGB CONC 32.9 g/dl (32.0-36.5); MEAN CORPUSCULAR VOLUME 89.5 fl (80.0-96.0); PLATELET COUNT, AUTOMATED 263 10^3/uL (150-450); RED BLOOD COUNT 3.43 10^6/uL (4.00-5.40); WHITE BLOOD COUNT 6.2 10^3/uL (4.0-10.0)
[2018-11-05 07:14] LABS: CALCIUM LEVEL 8.3 MG/DL (8.8-10.2); CREATININE FOR GFR 1.03 MG/DL (0.55-1.30); GLOMERULAR FILTRATION RATE 54.1 (>32); POTASSIUM SERUM 3.8 MEQ/L (3.5-5.1)
[2018-11-05] MEDS: metroNIDAZOLE 500 MG in APPROPRIATE DILUENT 1 EA IV SCH (07:48)
[2018-11-05 09:00] VITALS: BP 148/66
[2018-11-05] MEDS: MIRALAX *UNIT DOSE* 17GM PACKET PO SCH (09:00)
[2018-11-05] MEDS: SENOKOT S TAB PO SCH (09:00)
[2018-11-05] MEDS: ASPIRIN 81 MG CHEW TABLET PO SCH (10:16)
[2018-11-05] MEDS: CLOPIDOGREL 75 MG TAB PO SCH (10:16)
[2018-11-05] MEDS: LISINOPRIL 10 MG TAB PO SCH (10:18)
[2018-11-05] MEDS: amLODIPine 5 MG TAB PO SCH (10:19)
[2018-11-05] MEDS: METOPROLOL TART 25 MG TABLET PO SCH ×2 (10:20→21:52)
[2018-11-05 14:00] VITALS: BP 143/68
[2018-11-05] MEDS: metroNIDAZOLE (FLAGYL) 500 MG TAB PO SCH ×2 (15:01→21:52)
--- NOTE | 2018-11-05 15:16 | IPNPDOC ---
Text Note Date of Service The patient was seen on 11/05/18. NOTE Subjective: Patient is an 87-year-old female with a PMHx of Dementia, HTN, CAD s/p PCI, AV replacement (03/2018) who presented to the ER with complaints of abdominal pain. In the emergency room, patient was found to have a suspected colitis and was admitted to the hospitalist service for further evaluation and treatment. Surgery was called in consultation. Patient was seen and examined at the bedside. No significant complaints. Patient denies chest pain, shortness breath or palpitations. Denies any cough, nausea, vomiting, abdominal pain, constipation or diarrhea. Denies any discomfort with urination. Objective: Vitals (See below) General: Lying in bed, no acute distress, comfortable, Awake / Alert HEENT: NC, AT CVS: RRR, +S1S2 Lungs: Air entry is fair bilaterally without evidence of wheezing, rales or rhonchi Abdomen: Remains soft, nontender and nondistended Extremities: There is no calf tenderness and no edema appreciated Neuro: Moving all four extremities; strength intact bilaterally at LE Assessment and plan: s/p Abdominal pain - likely 2/2 Acute diverticulitis (mild) - Clinically improved; no abdominal discomfort, tolerating diet - Physical without any tenderness - No leukocytosis and lactic acidosis - CT abdomen / pelvis 10/30: 1. Dilated intrahepatic biliary radicals. Common bile duct dilated to 1.6 cm. No obstructing mass or choledocholithiasis. Hydropic gallbladder contains calculi. 2. Moderate diverticulosis coli. Suggestion of mild pericolonic inflammatory changes at the junction of the distal left proximal sigmoid colon indicating mild uncomplicated diverticulitis. - Will transition to PO Cefdinir and Flagyl (Antibiotic day #7); Will DC Ceftriaxone Acute on chronic back pain - Lumbar XR 11/04: Osteoporosis. Dextroconvex curvature. Osteoporotic wedge com pression fracture deformities at the at T12, L1 and L2 unchanged from recent CT study. There are degenerative spondylosis changes as well most pronounced at L4-5 and L5-S1. - c/w Tylenol PRN - c/w PT/OT Dilated CBD - Liver function tests within normal limits - MRCP 10/31: Gallstone in the gallbladder measures 2.5 cm in diameter without evidence of significant gallbladder wall thickening. Gallbladder is moderately dilated. There is moderate intrahepatic and extrahepatic biliary dilatation diffusely, the common bile duct measuring 1.6 cm in maximum diameter. There is no evidence of choledocholithiasis. I cannot exclude a stricture at the ampulla of Vater. There is no pancreatic duct dilatation. There are a few scattered small cysts in the pancreas which are of doubtful significance. - Surgery on consultation; no surgery indicated; will have outpatient follow up Dementia; likely progressive - Patient is been having progressive difficulty with activities of daily living and patient's son is unable to care for her - PFS on consultation for likely long-term placement - c/w PT / OT HTN - BP well controlled - c/w Amlodipine, Lisinopril and Metoprolol Constipation - c/w Bowel regimen CAD s/p PCI / AV replacement (03/2018) - c/w ASA and Plavix DVT prophylaxis - c/w Heparin Disposition: - Son: Bernabe (1 of 2 HCP): - Son notes that he is unable to take care of his mother; At this point will look into placement options VS,Fishbone, I+O VS, Fishbone, I+O Laboratory Tests 11/05/18 06:27 Red Blood Count 3.43 L, Mean Corpuscular Volume 89.5, Mean Corpuscular Hemoglobin 29.4, Mean Corpuscular Hemoglobin Concent 32.9, Red Cell Distribution Width 13.5, Calcium Level 8.3 L Vital Signs Date Time Temp Pulse Resp B/P (MAP) Pulse Ox O2 Delivery O2 Flow Rate FiO2 11/05/18 10:19 64 148/68 11/05/18 09:00 97.8 17 94 10/31/18 14:00 Room Air I&O- Last 24 Hours up to 6 AM 11/05/18 06:00 Intake Total 700 ml Output Total 1050 ml Balance -350 ml ANTONIO MANCILLA MD Nov 05, 2018 15:16
[2018-11-05 22:00] VITALS: BP 186/80
[2018-11-06] MEDS: ACETAMINOPHEN TAB 650MG DOSE (2X325MG) PO PRN (01:50)
[2018-11-06] MEDS: metroNIDAZOLE (FLAGYL) 500 MG TAB PO SCH ×3 (05:43→21:11)
[2018-11-06] MEDS: HEPARIN SOD (PORCINE) 5000 UNITS/ML VIAL SC SCH ×3 (05:44→21:12)
[2018-11-06 06:00] VITALS: BP 131/76
[2018-11-06 06:38] LABS: HEMATOCRIT 33.2 % (36.0-47.0); HEMOGLOBIN 10.7 g/dl (12.0-15.5); MEAN CORPUSCULAR HEMOGLOBIN 29.2 pg (27.0-33.0); MEAN CORPUSCULAR HGB CONC 32.2 g/dl (32.0-36.5); MEAN CORPUSCULAR VOLUME 90.7 fl (80.0-96.0); PLATELET COUNT, AUTOMATED 317 10^3/uL (150-450); RED BLOOD COUNT 3.66 10^6/uL (4.00-5.40); WHITE BLOOD COUNT 6.2 10^3/uL (4.0-10.0)
[2018-11-06 06:59] LABS: CALCIUM LEVEL 9.1 MG/DL (8.8-10.2); CREATININE FOR GFR 1.03 MG/DL (0.55-1.30); GLOMERULAR FILTRATION RATE 54.1 (>32); POTASSIUM SERUM 3.9 MEQ/L (3.5-5.1)
[2018-11-06] MEDS: LISINOPRIL 10 MG TAB PO SCH (08:54)
[2018-11-06] MEDS: ASPIRIN 81 MG CHEW TABLET PO SCH (08:54)
[2018-11-06] MEDS: CEFDINIR 300 MG CAP (OMNICEF) PO SCH (08:54)
[2018-11-06] MEDS: MIRALAX *UNIT DOSE* 17GM PACKET PO SCH (08:55)
[2018-11-06] MEDS: METOPROLOL TART 25 MG TABLET PO SCH ×2 (08:55→21:12)
[2018-11-06] MEDS: amLODIPine 5 MG TAB PO SCH (08:55)
[2018-11-06] MEDS: SENOKOT S TAB PO SCH (08:55)
[2018-11-06] MEDS: CLOPIDOGREL 75 MG TAB PO SCH (08:55)
--- NOTE | 2018-11-06 13:05 | IPNPDOC ---
Text Note Date of Service The patient was seen on 11/06/18. NOTE Subjective: Patient is an 87-year-old female with a PMHx of Dementia, HTN, CAD s/p PCI, AV replacement (03/2018) who presented to the ER with complaints of abdominal pain. In the emergency room, patient was found to have a suspected colitis and was admitted to the hospitalist service for further evaluation and treatment. Surgery was called in consultation. Patient was seen and examined at the bedside. Again this morning, patient denies any complaints. Has been ambulating without difficulty. . She denies any abdominal pain, diarrhea, nausea, vomiting. Has not experienced any shortness of breath, palpitations, cough, chest pain. Objective: Vitals (See below) General: Lying in bed, no acute distress, comfortable, Awake / Alert HEENT: NC, AT CVS: RRR, +S1S2 Lungs: Air entry is equal and fair bilaterally, does not appear to be any auscultated evidence of rhonchi, rales or wheezing Abdomen: Remains soft, without distention / tenderness Extremities: No calf tenderness. No lower extremity edema Neuro: Moving all four extremities; 5/5 strength at b/l lower extremities, no loss of sensation appreciated Assessment and plan: s/p Abdominal pain - likely 2/2 Acute diverticulitis (mild) - Clinically improved; no abdominal discomfort, tolerating diet - Physical without any tenderness - No leukocytosis and lactic acidosis - CT abdomen / pelvis 10/30: 1. Dilated intrahepatic biliary radicals. Common bile duct dilated to 1.6 cm. No obstructing mass or choledocholithiasis. Hydropic gallbladder contains calculi. 2. Moderate diverticulosis coli. Suggestion of mild pericolonic inflammatory changes at the junction of the distal left proximal sigmoid colon indicating mild uncomplicated diverticulitis. - c/w Cefdinir and Flagyl; s/p Ceftriaxone (Antibiotic day #8 of 10) Acute on chronic back pain - Lumbar XR 11/04: Osteoporosis. Dextroconvex curvature. Osteoporotic wedge compression fracture deformities at the at T12, L1 and L2 unchanged from recent CT study. There are degenerative spondylosis changes as well most pronounced at L4-5 and L5-S1. - c/w Tylenol PRN - c/w PT/OT - has been ambulating well Dilated CBD - Liver function tests within normal limits - MRCP 1/31: Gallstone in the gallbladder measures 2.5 cm in diameter without evidence of significant gallbladder wall thickening. Gallbladder is moderately dilated. There is moderate intrahepatic and extrahepatic biliary dilatation diffusely, the common bile duct measuring 1.6 cm in maximum diameter. There is no evidence of choledocholithiasis. I cannot exclude a stricture at the ampulla of Vater. There is no pancreatic duct dilatation. There are a few scattered small cysts in the pancreas which are of doubtful significance. - Surgery on consultation; no surgery indicated; will have outpatient follow up Dementia; likely progressive - Patient is been having progressive difficulty with activities of daily living and patient's son is unable to care for her - PFS on consultation for likely long-term placement - c/w PT / OT HTN - BP well controlled - c/w Amlodipine, Lisinopril and Metoprolol Constipation - c/w Bowel regimen CAD s/p PCI / AV replacement (03/2018) - c/w ASA and Plavix DVT prophylaxis - c/w Heparin Disposition: - Son: Bernabe (1 of 2 HCP): - Son is indicated that he is unwilling to provide his mother assistance if it is required home; his expectation is that she be fully independent - He is unwilling to consider subacute rehabilitation placement because he is concerned he will lose his/her "Assets" VSJody, I+O VSJody, I+O Laboratory Tests 11/06/18 06:05 Red Blood Count 3.66 L, Mean Corpuscular Volume 90.7, Mean Corpuscular Hemoglobin 29.2, Mean Corpuscular Hemoglobin Concent 32.2, Red Cell Distribution Width 13.7, Calcium Level 9.1 Vital Signs Date Time Temp Pulse Resp B/P (MAP) Pulse Ox O2 Delivery O2 Flow Rate FiO2 11/06/18 08:55 67 131/76 11/06/18 06:00 97.7 18 97 10/31/18 14:00 Room Air I&O- Last 24 Hours up to 6 AM 11/06/18 06:00 Intake Total 1060 ml Output Total 300 ml Balance 760 ml ANTONIO MANCILLA MD Nov 06, 2018 13:05
[2018-11-06 14:00] VITALS: BP 134/62
[2018-11-06 22:00] VITALS: BP 153/70
[2018-11-07] MEDS: metroNIDAZOLE (FLAGYL) 500 MG TAB PO SCH ×3 (05:34→21:42)
[2018-11-07] MEDS: HEPARIN SOD (PORCINE) 5000 UNITS/ML VIAL SC SCH ×3 (05:34→21:43)
[2018-11-07] MEDS: ACETAMINOPHEN TAB 650MG DOSE (2X325MG) PO PRN ×2 (05:35→21:43)
[2018-11-07 06:00] VITALS: BP 161/87
[2018-11-07 06:20] LABS: HEMATOCRIT 31.5 % (36.0-47.0); HEMOGLOBIN 10.3 g/dl (12.0-15.5); MEAN CORPUSCULAR HEMOGLOBIN 29.2 pg (27.0-33.0); MEAN CORPUSCULAR HGB CONC 32.7 g/dl (32.0-36.5); MEAN CORPUSCULAR VOLUME 89.2 fl (80.0-96.0); PLATELET COUNT, AUTOMATED 315 10^3/uL (150-450); RED BLOOD COUNT 3.53 10^6/uL (4.00-5.40); WHITE BLOOD COUNT 5.2 10^3/uL (4.0-10.0)
[2018-11-07 06:42] LABS: CREATININE FOR GFR 1.05 MG/DL (0.55-1.30); GLOMERULAR FILTRATION RATE 52.9 (>32); POTASSIUM SERUM 3.8 MEQ/L (3.5-5.1)
[2018-11-07] MEDS: ASPIRIN 81 MG CHEW TABLET PO SCH (08:42)
[2018-11-07] MEDS: CLOPIDOGREL 75 MG TAB PO SCH (08:42)
[2018-11-07] MEDS: SENOKOT S TAB PO SCH (08:42)
[2018-11-07] MEDS: LISINOPRIL 10 MG TAB PO SCH (08:42)
[2018-11-07] MEDS: CEFDINIR 300 MG CAP (OMNICEF) PO SCH (08:42)
[2018-11-07] MEDS: METOPROLOL TART 25 MG TABLET PO SCH ×2 (08:42→21:42)
[2018-11-07] MEDS: amLODIPine 5 MG TAB PO SCH (08:43)
[2018-11-07] MEDS: MIRALAX *UNIT DOSE* 17GM PACKET PO SCH (08:45)
[2018-11-07 14:00] VITALS: BP 142/67
[2018-11-07 22:00] VITALS: BP 178/79
[2018-11-08 06:00] VITALS: BP 140/63
[2018-11-08] MEDS: metroNIDAZOLE (FLAGYL) 500 MG TAB PO SCH ×2 (06:23→14:08)
[2018-11-08] MEDS: HEPARIN SOD (PORCINE) 5000 UNITS/ML VIAL SC SCH ×2 (06:23→14:03)
[2018-11-08] MEDS: ACETAMINOPHEN TAB 650MG DOSE (2X325MG) PO PRN (06:23)
[2018-11-08 08:40] VITALS: BP 100/46
[2018-11-08] MEDS: MIRALAX *UNIT DOSE* 17GM PACKET PO SCH (09:00)
[2018-11-08] MEDS: SENOKOT S TAB PO SCH (09:00)
[2018-11-08 10:00] VITALS: BP 118/62
[2018-11-08] MEDS: CLOPIDOGREL 75 MG TAB PO SCH (10:17)
[2018-11-08] MEDS: ASPIRIN 81 MG CHEW TABLET PO SCH (10:17)
[2018-11-08] MEDS: CEFDINIR 300 MG CAP (OMNICEF) PO SCH (10:18)
[2018-11-08 10:19] VITALS: BP 118/62
[2018-11-08] MEDS: METOPROLOL TART 25 MG TABLET PO SCH (10:19)
[2018-11-08] MEDS: amLODIPine 5 MG TAB PO SCH (10:19)
[2018-11-08] MEDS: LISINOPRIL 10 MG TAB PO SCH (10:19)
[2018-11-08] MEDS ORDERED: FLAG500T PO (12:47)
[2018-11-08] MEDS ORDERED: CEFD300CAP PO ×2 (12:47→13:08)
--- NOTE | 2018-11-08 13:07 | DS.PDOC ---
Discharge Summary General Date of Admission Oct 31, 2018 at 01:55 Date of Discharge 11/08/18 Discharge Summary PROCEDURES PERFORMED DURING STAY: [None]. ADMITTING DIAGNOSES: 1. acute diverticulitis 2. dementia DISCHARGE DIAGNOSES: 1. [acute diverticulitis ]. COMPLICATIONS/CHIEF COMPLAINT: Diverticulitis, Gallbladder Hydrops. HISTORY OF PRESENT ILLNESS: HISTORY OF PRESENT ILLNESS: The patient is an 87-year-old female. She is presently demented. She also had coronary artery disease (CAD) status post PCI. She had aortic valve replacement in 03/2018. She has hypertension. She presents to the emergency room brought by EMS complaining of abdominal pain. Son was initially present in the emergency room. The patient was having some lower quadrant abdominal pain. Patient is presently demented. She is a very poor historian. Most of the history is obtained from the charts of her primary care physician along with the aide of the emergency department provider and EMS. She currently is completely asymptomatic. A CT of the abdomen shows uncomplicated diverticulitis. She also has severely dilated common bile duct (CBD) with hydrops gallbladder. However, she remains asymptomatic and has no complaints. Attempts were made to discharge the patient from the emergency room and to treat with oral medications for acute uncomplicated diverticulitis, however, her family was not able to be contacted. In the emergency room, the patient denies any symptoms. She denies any nausea, vomiting, chest pain, abdominal pain, constipation, diarrhea, urinary symptoms. She denies having a history of any abdominal pain at all. So at best, I believe the patient's history is unreliable HOSPITAL COURSE: Patient was treated with antibiotics for acute diverticulitis. She is doing, symptoms improved, having good bowel movements and tolerating diet. She complains of chronic intermittent back pain, but said it is not present at this time. DISCHARGE MEDICATIONS: Please see below. ALLERGIES: Please see below. PHYSICAL EXAMINATION ON DISCHARGE: PHYSICAL EXAMINATION: GEN: no acute distress HEENT : no lymphadenopathy, PERRLA , no oropharyngeal erythema or exudates CVS: Normal S1/s2, no murmurs, rubs or gallops, RESP: Lungs are clear to auscultation bilaterally, no crackles, wheezes or rhonchi Abd: soft, nontender, nondistended, + BS MSK: full ROM, 5/5 strength in all extremities Integumentary: no rash or bruises Neuro: AOAx3, no focal deficit psych: normal mood, good judgement and cooperative LABORATORY DATA: Please see below. IMAGING: [ IMPRESSION: Gallstone in the gallbladder measures 2.5 cm in diameter without evidence of significant gallbladder wall thickening. Gallbladder is moderately dilated. There is moderate intrahepatic and extrahepatic biliary dilatation diffusely, the common bile duct measuring 1.6 cm in maximum diameter. There is no evidence of choledocholithiasis. I cannot exclude a stricture at the ampulla of Vater. There is no pancreatic duct dilatation. There are a few scattered small cysts in the pancreas which are of doubtful significance. MRCP exam is accomplished utilizing multiple heavily T2-weighted sequences in the axial and coronal planes. 3D MIP reconstruction images are performed. Gallbladder is moderately distended with no definite wall thickening. There is a 2.5 cm gallstone in the dependent portion of the gallbladder. There is moderate intrahepatic biliary dilatation diffusely. There is dilatation of the common hepatic and common bile ducts with a maximum diameter of 1.6 cm. There is no evidence of choledocholithiasis. I cannot exclude a stricture at the ampulla of Vater. Pancreatic duct is not dilated. A few scattered small cysts are seen in the pancreas which are of doubtful significance. There appears to be a subcentimeter cyst in the tail of the pancreas superiorly and another in the body of the pancreas, with two similar sized cysts in the head of the pancreas, the largest two are in the head of the pancreas and measure 7 mm in diameter and 10 x 5 mm. No other significant abnormalities are seen in the abdomen. No significant free fluid is seen. IMPRESSION: Gallstone in the gallbladder measures 2.5 cm in diameter without evidence of significant gallbladder wall thickening. Gallbladder is moderately dilated. There is moderate intrahepatic and extrahepatic biliary dilatation diffusely, the common bile duct measuring 1.6 cm in maximum diameter. There is no evidence of choledocholithiasis. I cannot exclude a stricture at the ampulla of Vater. There is no pancreatic duct dilatation. There are a few scattered small cysts in the pancreas which are of doubtful significance. EXAMINATION REQUESTED: Spine. Lumbosacral, complete REASON FOR PATIENT VISIT: DIVERTICULITIS, GALLBLADDER HYDROPS REASON FOR EXAM/COMMENT: lower back pain Lumbar spine series: Five views. History: Low back pain. Findings: Five views of the lumbar spine show dextroconvex curvature. There is diffuse osteopenia. There is loss of vertebral body height at L2 and L1. Some osteoporotic wedging is seen at T12. These findings are unchanged when compared with sagittal reformatted images from October 30, 2018 CT study. There is degenerative disc narrowing at L4-5, L5-S1 and to some degree at L3-4. There is osteoarthritic facet narrowing bilaterally at L3-4, L4-5 and L5-S1. Sacrum and SI joints appear intact. There is a pin in each hip. Vascular calcification is noted. There is no evidence of spondylolysis or spondylolisthesis. Impression: Osteoporosis. Dextroconvex curvature. Osteoporotic wedge compression fracture deformities at the at T12, L1 and L2 unchanged from recent CT study. There are degenerative spondylosis changes as well most pronounced at L4-5 and L5-S1. TECHNIQUE: Axial computed tomography images of the abdomen and pelvis with intravenous contrast. All CT scans at this facility use at least one of these dose optimization techniques: automated exposure control; mA and/or kV adjustment per patient size (includes targeted exams where dose is matched to clinical indication); or iterative reconstruction. Coronal and sagittal reformatted images were created and reviewed. CONTRAST: 100 ml of ISOVUE 370 administered intravenously. COMPARISON: No relevant prior studies available. FINDINGS: Lower thorax: No acute findings. ABDOMEN: Liver: Normal. No mass. Gallbladder and bile ducts: Dilated intrahepatic biliary radicals. Common bile duct dilated to 1.6 cm. No obstructing mass or choledocholithiasis. Hydropic gallbladder contains calculi. Pancreas: Normal. No ductal dilation. Spleen: Normal. No splenomegaly. Adrenals: Normal. No mass. Kidneys and ureters: Normal. No hydronephrosis. Stomach and bowel: Thickwalled gastric fundus likely related to underdistention. Clinical correlation to exclude an infiltrative process suggested. Moderate diverticulosis coli. Suggestion of mild pericolonic inflammatory changes at the junction of the distal left proximal sigmoid colon indicating mild uncomplicated diverticulitis. Appendix: No evidence of appendicitis. PELVIS: Bladder: Pritchard catheter within a collapsed urinary bladder. Otherwise unremarkable as visualized. Reproductive: Calcified uterine fibroids. ABDOMEN and PELVIS: Intraperitoneal space: Normal. No free air. No significant fluid collection. Bones/joints: Status post ORIF both hips. Degenerative spondylosis. Moderate to severe spinal stenosis at L2-3, L3-4, and L4-5. Slight anterolisthesis of L3 on L4. Compression deformities of T12, L1 and L2 likely chronic. Clinical correlation to exclude acute fracture suggested. Soft tissues: Unremarkable. Vasculature: The aorta demonstrates moderate atherosclerotic calcification. Tortuous aorta. Lymph nodes: Normal. No enlarged lymph nodes. Other findings: Osteoporosis. IMPRESSION: 1. Dilated intrahepatic biliary radicals. Common bile duct dilated to 1.6 cm. No obstructing mass or choledocholithiasis. Hydropic gallbladder contains calculi. 2. Moderate diverticulosis coli. Suggestion of mild pericolonic inflammatory changes at the junction of the distal left proximal sigmoid colon indicating mild uncomplicated diverticulitis. TECHNIQUE: Axial computed tomography images of the head/brain without contrast. All CT scans at this facility use at least one of these dose optimization techniques: automated exposure control; mA and/or kV adjustment per patient size (includes targeted exams where dose is matched to clinical indication); or iterative reconstruction. COMPARISON: No relevant prior studies available. FINDINGS: Brain: There is parenchymal volume loss. White matter changes are demonstrated in the subcortical, centrum semiovale and periventricular white matter consistent with small vessel white matter angiopathic gliosis. Ventricles: Normal. No ventriculomegaly. Bones/joints: Unremarkable. No acute fracture. Sinuses: Visualized sinuses are unremarkable. No acute sinusitis. Mastoid air cells: Visualized mastoid air cells are unremarkable. No mastoid effusion. Soft tissues: Unremarkable. Vasculature: Atherosclerotic changes in the vertebral and intracranial carotid arteries. IMPRESSION: There is parenchymal volume loss. White matter changes are demonstrated in the subcortical, centrum semiovale and periventricular white matter consistent with small vessel white matter angiopathic gliosis. No acute findings. Clinical: Fever . Comparison: None . Findings: Mediastinum demonstrates atherosclerotic changes to the thoracic aorta along with aortic valve stent graft. Lung whyte demonstrate diffuse chronic changes. No focal consolidation, obvious effusion or pneumothorax. Skeletal structures demonstrate age-related degenerative change. Impression: Chronic-appearing changes. No acute cardiopulmonary process appreciated. Electronically Signed by Phuc Armstrong MD 10/31/2018 07:27 A ACTIVITY: [As tolerated]. DISCHARGE CONDITION: [Stable]. TIME SPENT ON DISCHARGE: Greater than [45] minutes. Vital Signs/I&Os Vital Signs Date Time Temp Pulse Resp B/P (MAP) Pulse Ox O2 Delivery O2 Flow Rate FiO2 11/08/18 10:19 72 118/62 11/08/18 08:40 98.9 16 95 I&O- Last 24 Hours up to 6 AM 11/08/18 06:00 Intake Total 750 ml Output Total 0 ml Balance 750 ml Microbiology Microbiology 10/30/18 Blood Culture - Final, Complete NO GROWTH AFTER 5 DAYS 10/30/18 Urine Culture - Final, Complete Discharge Medications Scheduled Amlodipine Besylate (Amlodipine Besylate) 5 Mg Tab, 5 MG PO DAILY, (Reported) Aspirin (Aspirin EC) 81 Mg Tabec, 81 MG PO DAILY, (Reported) Cefdinir (Cefdinir) 300 Mg Cap, 300 MG PO DAILY for divedrticulitis Clopidogrel Bisulfate (Clopidogrel) 75 Mg Tab, 75 MG PO DAILY, (Reported) Lisinopril (Lisinopril) 10 Mg Tab, 10 MG PO DAILY, (Reported) Metoprolol Tartrate (Metoprolol Tartrate) 25 Mg Tab, 25 MG PO BID, (Reported) Metronidazole (Flagyl) 500 Mg Tab, 500 MG PO Q8H Allergies Coded Allergies: No Known Allergies (Unverified , 10/30/18) ELOISA ZHENG MD Nov 08, 2018 13:07
--- NOTE | 2018-11-08 18:26 | IPN ---
DATE: 11/07/2018 This is an 87-year-old female with a prior history of dementia, hypertension, coronary artery disease, status post percutaneous coronary intervention (PCI), aortic valve (AV) replacement 03/2018, came to the emergency room with complaints of abdominal pain, was seen, examined, and subsequently admitted, had a surgical consultation. She has since been doing well. OBJECTIVE: Blood pressure 142/67, pulse 68, respirations 15, temperature 97.8, oxygen saturation 95% on room air. The patient is sitting up in the chair, alert, oriented to person and place. Pupils are equal and reactive to light. Extraocular movements intact. Cornea and sclerae clear. Conjunctivae is normal. No facial asymmetry. Pharynx: Tongue and gums pink and moist. Tongue is midline. Neck is supple without lymphadenopathy. No thyromegaly. No goiter. Chest is clear to auscultation without wheeze or retractions. Heart is regular. Abdomen was soft, nontender No masses, pulsations, or bruits. No organomegaly. Bowel sounds are positive. Genital/Rectal: Not done. Extremities: No cyanosis, clubbing or edema, equal strength, full range of motion. IMPRESSION AND PLAN: Status post abdominal pain, likely secondary to diverticulitis. Continue Flagyl and cefdinir for two more days. White count remains normal. Electrolytes are normal. BUN 20, creatinine 1.0. Acute on chronic back pain, improving - working with physical therapy. She has osteoporotic wedge compression fracture T12, L1, L2; unchanged from recent CT study. Dilated common bile duct. Had an magnetic resonance cholangiopancreatography (MRCP). Surgery was consulted, felt no surgery was indicated. She will have outpatient followup. Dementia. Patient having progressive difficulty with activities of daily living. Patient's son voices he is unable to care for her. Patient and family services (PFS) is on consultation for perhaps long-term placement, but son has indicated he is unwilling to provide his mother assistance if it is required at home, his expectation she will become fully dependent. He, at this time, is unwilling to consider subacute rehab placement. He is concerned he will lose her "assets." History of hypertension. Continue antihypertensive. Constipation. Continue bowel regimen. Coronary artery disease. Stent and AV replacement. Continue aspirin and Plavix.
== END 2018-11-08 14:30 | disposition home health service (06) | DRG 392 ==
LOC: M ED 19:27 → M ED INP 10-31 01:55 → M MS5PR 10-31 14:20
PROVIDERS: ADMIT Internal Medicine; ATTEND Internal Medicine
DX: K57.32 Diverticulitis of large intestine without perforation or abscess without bleeding (principal); K82.1 Hydrops of gallbladder; F03.90 Unspecified dementia, unspecified severity, without behavioral disturbance, psychotic disturbance, mood disturbance, and anxiety; I25.10 Atherosclerotic heart disease of native coronary artery without angina pectoris; Z95.2 Presence of prosthetic heart valve; I10 Essential (primary) hypertension; Z79.899 Other long term (current) drug therapy; Z79.82 Long term (current) use of aspirin; Z87.891 Personal history of nicotine dependence; K59.00 Constipation, unspecified; M54.5 Low back pain